=== PATIENT | female | born 1975 | race Caucasian/White ===

== ENCOUNTER 2021-09-07 09:27 | Outpatient (CLI) | payer OTHER, SELFPAY ==
--- NOTE | 2021-09-07 09:15 | CRLHL7_ITS ---
For Patients: As a result of the Century Cures Act, medical imaging exams and procedure reports are released immediately into your electronic medical record. You may view this report before your referring provider. If you have questions, please contact your health care provider. BILATERAL MAMMOGRAM WITH COMPUTER-AIDED DETECTION TECHNIQUE: CC and MLO views were obtained. These mammographic images have been obtained using full-field digital technique. These mammographic images were interpreted with the benefit of computer-aided detection. COMPARISON FILM: 10/19/2017. FINDINGS: The breasts are heterogeneously dense, which may obscure small masses IMPRESSION: There is no radiographic evidence for malignancy. ASSESSMENT: BI-RADS Category 1: Negative RECOMMENDATION: Routine screening mammogram in 1 year. A lay language report of this examination will be provided to the patient. Arnie Martinez M.D. Diagnostic Radiologist [email or web address] ZAIRA/Dictated by: Arnie Martinez MD @ 09/07/2021 11:48:00 AM (Electronically Signed)
== END 2021-09-07 09:28 | disposition home or self-care (01) ==
LOC: MAMMO 09:28
PROVIDERS: Visit Provider Physician Assistant
DX: Z12.31 Encounter for screening mammogram for malignant neoplasm of breast (principal); R92.2 Inconclusive mammogram
CPT/HCPCS: 77063; 77067

== ENCOUNTER 2022-08-14 08:50 | Outpatient (CLI) | payer OTHER, SELFPAY | END 2022-08-14 08:51 | disposition home or self-care (01) | LOC: NFLDREF 08-15 15:19 | PROVIDERS: Visit Provider Physician Assistant | DX: Z13.6 Encounter for screening for cardiovascular disorders (principal); Z13.1 Encounter for screening for diabetes mellitus | CPT/HCPCS: 80061; 82947; 84443 ==

== ENCOUNTER 2023-01-17 08:01 | Outpatient (CLI) | payer OTHER, SELFPAY ==
--- NOTE | 2023-01-17 08:15 | CRLHL7_ITS ---
For Patients: As a result of the Century Cures Act, medical imaging exams and procedure reports are released immediately into your electronic medical record. You may view this report before your referring provider. If you have questions, please contact your health care provider. BILATERAL DIGITAL SCREENING MAMMOGRAM WITH COMPUTER-AIDED DETECTION CLINICAL HISTORY: Routine screening exam. COMPARISON: 09/07/2021, 10/19/2017 TECHNIQUE: Digital mammogram in CC and MLO projections including computer-aided detection (CAD). BREAST COMPOSITION: The breasts are heterogeneously dense, which may obscure small masses. FINDINGS: RIGHT Breast: No suspicious findings. LEFT Breast: Focal asymmetric density within the lower outer quadrant 8 cm from the nipple. IMPRESSION: LEFT breast asymmetry/mass. RECOMMENDATIONS: Additional mammographic views of the LEFT breast including 3D spot compression CC/MLO. LEFT breast ultrasound may also be required. The [facility] will contact the patient. BI-RADS Category 0: Incomplete - Need Additional Imaging Evaluation and/or Prior Mammograms for Comparison. A lay language report of this examination will be provided to the patient. Dictated by Arnie Martinez MD @ 01/17/2023 1:14:21 PM CRL:ana RD/Dictated by: Arnie Martinez MD @ 01/17/2023 1:14:[address]/Dictated by: Arnie Martinez MD @ 01/17/2023 1:14:00 PM (Electronically Signed)
== END 2023-01-17 08:02 | disposition home or self-care (01) ==
LOC: MAMMO 08:02
PROVIDERS: Visit Provider Physician Assistant
DX: Z12.31 Encounter for screening mammogram for malignant neoplasm of breast (principal); N63.20 Unspecified lump in the left breast, unspecified quadrant; R92.2 Inconclusive mammogram
CPT/HCPCS: 77067

== ENCOUNTER 2023-01-31 09:31 | Outpatient (CLI) | payer OTHER, SELFPAY ==
--- NOTE | 2023-01-31 09:45 | CRLHL7_ITS ---
For Patients: As a result of the Cures Act, medical imaging exams and procedure reports are released immediately into your electronic medical record. You may view this report before your referring provider. If you have questions, please contact your health care provider. DIGITAL DIAGNOSTIC LEFT MAMMOGRAM USING TOMOSYNTHESIS AND COMPUTER-AIDED DETECTION LEFT BREAST ULTRASOUND CLINICAL HISTORY: LEFT breast mass/asymmetry. COMPARISON: 01/17/2023. TECHNIQUE: Digital LEFT mammogram in two projections. Tomosynthesis and CAD utilized. Real-time ultrasound imaging of LEFT breast with imaging documentation. BREAST COMPOSITION: There are areas of scattered fibroglandular density. FINDINGS: 3D spot compression CC/MLO LEFT breast mammogram images submitted. Decreased conspicuity of previously noted asymmetric density within the lower outer quadrant compared to the prior study. No architectural distortion. No suspicious calcifications. Targeted LEFT breast ultrasound performed 4 o`clock 6 cm from the nipple. Simple anechoic cyst is present at mid depth measuring 10 x 5 x 10 millimeters. No abnormal vascularity. IMPRESSION: Simple cyst LEFT breast 4 o`clock 6 cm from the nipple measuring 1 cm. No evidence of malignancy. RECOMMENDATIONS: Annual BILATERAL screening mammography. Results and recommendations discussed with patient. BI-RADS Category 2: Benign A lay language report of this examination will be provided to the patient. Dictated by Arnie Martinez MD @ 01/31/2023 10:08:23 AM /Dictated by: Arnie Martinez MD @ 01/31/2023 10:08:00 AM (Electronically Signed)
--- NOTE | 2023-01-31 10:15 | CRLHL7_ITS ---
For Patients: As a result of the Cures Act, medical imaging exams and procedure reports are released immediately into your electronic medical record. You may view this report before your referring provider. If you have questions, please contact your health care provider. PLEASE SEE DIGITAL DIAGNOSTIC LEFT MAMMOGRAM PERFORMED SAME DAY CRL:kevan mathur/Dictated by: Arnie Martinez MD @ 01/31/2023 10:14:00 AM (Electronically Signed)
== END 2023-01-31 09:32 | disposition home or self-care (01) ==
LOC: MAMMO 09:31
PROVIDERS: Visit Provider Physician Assistant
DX: N63.20 Unspecified lump in the left breast, unspecified quadrant (principal); N60.02 Solitary cyst of left breast; R92.8 Other abnormal and inconclusive findings on diagnostic imaging of breast
CPT/HCPCS: 76642; 77065; G0279

== ENCOUNTER 2023-09-12 12:19 | Emergency (ER) | payer BC, SELFPAY ==
[2023-09-12 12:35] VITALS: BP 113/85; PULSE 67; RESP 20; O2SAT 97; BMI 31.0
--- NOTE | 2023-09-12 13:18 | ED.WOUNDLAC ---
HPI - Wound/Laceration General Chief Complaint: Laceration/Wound Stated Complaint: LT hand laceration Time Seen by Provider: 09/12/23 12:26 History of Present Illness HPI narrative: This 48-year-old female comes in with a laceration on her left hand. She was cutting food and now has a laceration on the palmar aspect of the MP joint of her left middle finger. Her tetanus status is up-to-date and last administered 4 years ago. Related Data Previous Rx's ?Medication ?Instructions ?Recorded desogestrel 0.15 mg-ethinyl 1 tab PO QDAY #112 tabs 09/11/23 estradiol 0.03 mg tablet (Apri) valacyclovir 500 mg tablet 2,000 mg (4 x 500 mg) PO Q12H #24 09/11/23 tabs Allergies Allergy/AdvReac Type Severity Reaction Status Date / Time No Known Drug Allergies Allergy Verified 09/12/23 12:40 Review of Systems Status of ROS: Reports: 10 or more systems reviewed and unremarkable except as noted in History and below Narrative: Constitutional: No fevers, no weight gain or loss. Eyes: No discharge. No vision changes. HENT: No congestion, no sore throat, no ear pain. Cardiovascular: No chest pain, no palpitations. Respiratory: No shortness of breath, no wheezes, no cough. Gastrointestinal: No abdominal pain, no vomiting, no diarrhea. Genitourinary: No dysuria, no hematuria. Musculoskeletal: Normal range of motion. Skin: No rashes, no pruritis. Neurological: No dizziness, weakness, sensory change, speech change. Endo/Heme/Allergies: No bruising or bleeding. No polydipsia. Pysch: no suicidality, no anxiety, no insomnia. All other systems reviewed and are negative. [facility] Medical History History of herpes labialis ?Z86.19 - Personal history of other infectious and parasitic diseases (ICD-10) Breast nodule (10/19/17) ?N63.0 - Unspecified lump in unspecified breast (ICD-10) Surgical History History of ovarian cystectomy ?Z98.890 - Other specified postprocedural states (ICD-10) ?Z87.42 - Personal history of other diseases of the female genital tract (ICD-10) History of 2 sections ?Z98.891 - History of uterine scar from previous surgery (ICD-10) Family History Mother Multiple sclerosis Social History Narrative: Speech language pathologist. . Non-smoker. Occasional alcohol use. What is your current living situation?: I presently have a place to live Problems where you live: no known problems In the past 12 months, utilities in danger of being shut off: no In past 12 months, lack of transportation kept you from medical appts, meetings, work, or getting things needed for daily living: no In the past 12 mos, have been you worried that your food would run out before you had money to buy more?: never true In the past 12 mos, the food you bought just didn't last and you didn't have money to buy more?: never true Smoking Status: Never smoker How often do you have a drink containing alcohol: 2-4 times a month AUDIT-C Alcohol total score: 2 Non-prescribed substance use: denies use How often does anyone, including family, friends and others, physically hurt you: never How often does anyone, including family, friends and others, insult or talk down to you: never How often does anyone, including family, friends and others, threaten you with harm: never How often does anyone, including family, friends and others, scream or curse at you: never Little interest or pleasure in doing things: not at all Feeling down, depressed, or hopeless: not at all service: No Exam Narrative: Exam Narrative: Constitutional: Well-developed, well-nourished, no acute distress. HEENT: Normocephalic, atraumatic. Neck: Normal range of motion. Nontender. Supple. Heart: Regular. No murmurs. Normal rate. Intact distal pulses. Lungs: Clear to auscultation. No chest discomfort. No wheezes, rhonchi, or rales. Abdomen: Normal bowel sounds. Nontender. No rebound tenderness. Genitalia: Deferred. Back: No midline tenderness. Normal range of motion. Extremities: Normal range of motion. 2 cm linear laceration on the palmar aspect of the MP joint of the left middle finger. Tendon and nerve function is intact. Skin: Intact. No rash. Warm. No erythema or pallor. Neurologic: No altered sensation. No weakness. Alert and oriented. Psychiatric: No suicidality. No anxiety or depression. No insomnia. Nursing notes and vitals signs are reviewed. Const: Vital Signs, click to edit/add: Vital Signs - 24 hr 09/12/23 12:35 Pulse Rate [Pulse Oximeter] 67 Respiratory Rate 20 Blood Pressure [Ri ght Upper Arm] 113/85 Pulse Oximetry 97 Oxygen Delivery Me thod Room Air Course Vital Signs Vital signs: Initial Vital Signs Pulse Rate 67 09/12/23 12:35 Respiratory Rate 20 09/12/23 12:35 Blood Pressure 113/85 09/12/23 12:35 Blood Pressure Mean 94 09/12/23 12:35 Pulse Oximetry 97 09/12/23 12:35 Oxygen Delivery Method Room Air 09/12/23 12:35 Vital Signs Pulse Rate 67 09/12/23 12:35 Respiratory Rate 20 09/12/23 12:35 Blood Pressure 113/85 09/12/23 12:35 Pulse Oximetry 97 09/12/23 12:35 Oxygen Delivery Method Room Air 09/12/23 12:35 Pulse Rate 67 09/12/23 12:35 Respiratory Rate 20 09/12/23 12:35 Blood Pressure 113/85 09/12/23 12:35 Pulse Oximetry 97 09/12/23 12:35 Oxygen Delivery Method Room Air 09/12/23 12:35 MDM - Wound/Laceration MDM Narrative Medical decision making narrative: This patient comes in with a laceration as described above. After anesthesia with 1% lidocaine, the wound was cleansed and explored to its base. Tendon function is intact. She does report some tingling sensation extending toward the end of her middle finger but states that she still has sensations in this area. The wound was repaired with 4.0 Ethilon suture. She received 5 sutures in interrupted fashion. Instructions regarding wound care were given including the need to return to clinic or urgent care in 7-10 days for suture removal. Discharge Plan Discharge Clinical Impression: Laceration Patient Disposition: Home, Self-Care Condition: Improved Additional Instructions: Keep wound clean and dry. Follow-up with clinic or urgent care in 7-10 days for suture removal. Return if worsening. Prescriptions: No Action valacyclovir 500 mg tablet 2,000 mg PO Q12H Qty: 24 4RF Hold Instructions: per patient Rx Instructions: 4 tabs bid x 1 day per episodes desogestrel-ethinyl estradiol [Apri] 0.15-0.03 mg tablet 1 tab PO QDAY Qty: 112 3RF Rx Instructions: Take continuously, allowing for a period every 3 months Follow Up/Referrals: Provider,Not a Local [Primary Care Provider] - Stand Alone Forms: MyHealth Info Instructions
== END 2023-09-12 13:55 | disposition home or self-care (01) ==
PROVIDERS: Emergency Provider Emergency Medicine Emergency Medical Services
DX: S61.412A Laceration without foreign body of left hand, initial encounter (principal); W26.0XXA Contact with knife, initial encounter
CPT/HCPCS: 12001; 99283; 99284

== ENCOUNTER 2023-11-22 07:05 | Outpatient (CLI) | payer BC, SELFPAY ==
--- OUTSIDE RECORDS SUMMARY | 2023-11-22 07:08 | XMS_ITS | Clinical Summary ---
Author Organization [facility] Address [place], [place] [address] Care Team Providers Care Anodiser Name Role Phone Pcp, No Unavailable Unavailable Kendal Silva DO Primary Care Provider [phone] Allergies No known active allergies Medications Medication Sig Dispensed Refills Start Date End Date Status valACYclovir (VALTREX) 500 mg tabletIndications:R ecurrent cold sores TAKE 2 TABLETS BY MOUTH TWICE DAILY FOR 2 DAYS AT ONSET OF COLD SORE 8 tablet 5 10/13/2016 Active ISIBLOOM tabletIndications:U ses contraception,Endom etriosis TAKE 1 ACTIVE TABLET BY MOUTH CONTINUOUSLY FOR 84 DAYS, THEN 1 WEEK OF [place] TABLETS 112 tablet 02/04/2018 Active betamethasone dipropionate 0.05% (DIPROSONE 0.05% CREAM) 0.05 % creamIndications:Ra sh Apply topically to affected area(s) 2 times daily. Not to exceed 14 days in one location per episode. 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 Uses contraception 09/20/2015 Immunizations Name Administration Dates Next Due AMB INFLUENZA IIV3 (AGE 65+ YRS) PF (Flu Clinic Only) 12/03/2017 COVID-19 vaccine (Gauzy 30mcg/0.3mL) P F, MDV 04/06/2020,03/16/2020 Hepatitis A (Adult) 02/11/2019 Influenza, IIV4 (=>6mos) MDV 11/28/2019,11/29/19 19 Tdap 02/10/2020 Family History Medical History Relation Name Comments Hypertension Brother 1 Good Health Brother 2 Good Health Father Hypertension Mother Multiple sclerosis Mother Relation Name Status Comments Brother 1 Alive Brother 2 Alive Father Alive Mother Alive Social History Tobacco Use Types Packs/Day Years Used Date Smoking Tobacco: Never Smokeless Tobacco: Never Tobacco Cessation:Counseling Given: Yes Alcohol Use Standard Drinks/Week Comments Yes 1 (1 standard drink = 0.6 oz pur e alcohol) once per week PHQ-2 Answer Date Recorded PHQ-2 TOTAL SCORE 0 01/03/2023 Social Connections Answer Date Recorded Frequency of Communication with Friends and Fami ly Not on file 02/26/2021 Financial Resource Strain Answer Date R ecorded Difficulty of Paying Living Expenses Not on file 02/26/2021 Difficulty of Paying Living Expenses Not on file 02/26/2021 Sex and Gender Information Value Date Recorded Sex Assigned at Not on file Gender Identity Not on file Sexual Orientation Not on file Obstetrics History Last Filed Vital Signs Vital Sign Reading Time Taken Comments Blood Pressure 112/72 01/03/2023 7:41 AM RECYCLE COORDINATOR Pulse 72 01/03/2023 7:41 AM RECYCLE COORDINATOR Temperature 36.8 ??C (98.3 ??F) 02/16/2022 2:02 PM CS T Respiratory Rate - - Oxygen Saturation 99% 09/13/2022 9:59 AM CDT Inhaled Oxygen Concentration - - Weight 80.5 kg (177 lb 8 oz) 01/03/2023 7:41 AM RECYCLE COORDINATOR Height 159.7 cm (5' 2.89) 01/03/2023 7:41 AM CS T Body Mass Index 31.55 01/03/2023 7:41 AM RECYCLE COORDINATOR Plan of Treatment Health Maintenance Due Date Last Done Comments HIV for age 15-65 12/31/1990 Hepatitis C screening for age 18-79 12/31/1993 Colonoscopy through age 75 12/31/2020 Lipids for age 45-75 12/31/2020 09/28/2015 Mammogram for age 45-75 12/31/2020 COVID-19 vaccine series ( season) 2023 11/29/2020, 04/06/2020, 03/16/2020 Influenza for age 9-49 10/28/2023 11/28/2019, 2018 BMI (ht and wt on same day) for age 18+ 01/04/2024 01/03/2023, 09/13/2022, 01/07/2021, Additional history exists Depression screening for age 12+ 01/04/2024 01/03/2023, 11/27/2017, 09/20/2015 Pap test for age 21-65 08/11/2027 3, 08/10/2022, 07/05/2021, Additional history exists Tetanus booster 02/09/2030 02/10/2020 Tdap Completed 02/10/2020 Pneumococcal series for age 6-64 Aged Out No longer eligible based on patient's age to complete this topic Procedures Procedure Name Priority Date/Time Associated Diagnosis Comments HPV HIGH RISK Routine 08/10/2022 1:52 PM CDT LIPID PANEL W REFLEX MEASURED LDL Routine 09/28/2015 9:28 AM CDT Routine general medical examination at a health care facility from Last 3 Months or Most Recently Relevant to Health Maintenance Results * HPV HIGH RISK (08/10/2022 1:52 PM CDT) TYPE 16 Negative Negative 08/21/2022 5:31 PM CDT [facility] TYPE 18 Negative Negative 08/21/2022 5:31 PM CDT [facility] OTHER HIGH RISK TYPES Negative Negative 08/21/2022 5:31 PM CDT [facility] Other (Cervical) 08/10/2022 1:52 PM CDT 08/15/2022 9:46 AM CDT Narrative [facility] - 08/21/2022 5:31 PM CDT HPV types 16, 18, 31, 33, 35, 39, 45, 51, 52, 56, 58, 59, 66 and 68 DNA were undetectable or below the pre-set threshold. Methodology: Kiara Maria T 4800 HPV Test Naz Lloyd PA-C MICROBIOLOGY [facility] [address] [place] [address], * LIPID PANEL W REFLEX MEASURED LDL (09/28/2015 9:28 AM CDT) CHOLESTEROL,TOTAL 189 100 - 199 mg/dL 09/28/2015 9:56 AM CDT [facility] TRIGLYCERIDES 113 <150 mg/dL 09/28/2015 9:56 AM CDT [facility] HDL CHOLESTEROL 75 >40 mg/dL 09/28/2015 9:56 AM CDT [facility] NON-HDL CHOLESTEROL 114 <145 mg/dl 09/28/2015 9:56 AM CDT [facility] CHOL/HDL RATIO 2.52 <4.50 09/28/2015 9:56 AM CDT [facility] LDL CHOLESTEROL 91 <=130 mg/dL 09/28/2015 9:56 AM CDT [facility] PATIENT STATUS FASTING 09/28/2015 9:56 AM CDT [facility] Blood BLOOD SPECIMEN / Unknown Venipuncture / Unknown 09/28/2015 9:28 AM CDT 09/28/2015 9:28 AM CDT Kendal Silva DO CHEMISTRY [facility] [address] [facility] [address], from Last 3 Months or Most Recently Relevant to Health Maintenance Care Teams Anodiser Relationship Specialty Start Date End Date Kendal Silva DO [address] [place] [address] PCP - General Family Practice 10/13/16 Pcp, No . 07/28/15
--- NOTE | 2023-11-22 09:11 | W.ANESCHARGE ---
Anesthesia Charges Start Date/Time Anesthesia Start Date: 11/22/23 Anesthesia Start Time: 08:36 Stop Date/Time Anesthesia Stop Date: 11/22/23 Anesthesia Stop Time: 09:06
--- NOTE | 2023-11-22 09:33 | W.ANESCHARGE ---
Anesthesia Charges Start Date/Time Anesthesia Start Date: 11/22/23 Anesthesia Start Time: 08:36 Stop Date/Time Anesthesia Stop Date: 11/22/23 Anesthesia Stop Time: 09:06
== END 2023-11-22 07:06 | disposition home or self-care (01) ==
PROVIDERS: Visit Provider Surgery
DX: Z12.11 Encounter for screening for malignant neoplasm of colon (principal); D12.2 Benign neoplasm of ascending colon; D12.3 Benign neoplasm of transverse colon; K64.4 Residual hemorrhoidal skin tags
CPT/HCPCS: 00811; 45385; 88305; J2704